=== PATIENT | female | born 1955 | race Caucasian/White ===

== ENCOUNTER 2016-10-09 17:43 | Emergency (ER) | payer OTHER ==
--- NOTE | ~2016-10-09 | CR172 ---
[facility] A Service of [facility] & [facility] RADIOLOGY TEXT RESULTS PATIENT: CHIP GOLDEN LOCATION: [facility] : 59 UNIT #: [id number] AGE: [address]: Nilson Armendariz MD SEX: F ORDER DR: [id number] [facility] [address] [place], [place] [address] [id number] E MR#: [id number] Acc #: [id number] NAME: CHIP GOLDEN : 1955 SEX: F STUDY DATE/TIME: 10/09/2016 17:36 UNIT: [facility] ROOM: STUDY DESCRIPTION: CR Knee 3 Views Lt Attending Physician: Nilson Armendariz M.D. Referring Physician: Agustin Steiner M.D. Ordering Physician: Ed Yaakov Boyce M.D. Primary Care Physician: No Primary Care Physician MEDICAL IMAGING REPORT This report is preliminary unless electronic signature is present EXAM Left knee. 3 views. DATE OF EXAM 10/09/2016 INDICATIONS 61-year-old female with left knee pain since last night. COMPARISON No comparisons. FINDINGS There is a small knee joint effusion. Osteopenia. No dislocation. No evidence for acute fracture. IMPRESSION Osteopenia with small knee joint effusion. Otherwise, unremarkable. Dictated by... Albert Montgomery M.D. THIS IS AN ELECTRONICALLY VERIFIED REPORT Albert Montgomery M.D. at 10/12/2016 8:01 AM SIM/vanessa TD: 10/09/2016 23:47 JOB #: [id number] MEDICAL IMAGING REPORT Page 1 of 1 COPY
--- NOTE | ~2016-10-09 | CR20 ---
[facility] A Service of [facility] & [facility] RADIOLOGY TEXT RESULTS PATIENT: CHIP GOLDEN LOCATION: [facility] : 59 UNIT #: [id number] AGE: [address]: Nilson Armendariz MD SEX: F ORDER DR: [id number] [facility] [address] [place], [place] [address] [id number] E MR#: [id number] Acc #: [id number] NAME: CHIP GOLDEN : 1955 SEX: F STUDY DATE/TIME: 10/09/2016 17:34 UNIT: [facility] ROOM: STUDY DESCRIPTION: CR Ankle Min 3 Views Lt Attending Physician: Nilson Armendariz M.D. Ordering Physician: Ed Yaakov Boyce M.D. Primary Care Physician: No Primary Care Physician MEDICAL IMAGING REPORT This report is preliminary unless electronic signature is present EXAM Left ankle, 3 views. DATE OF EXAM 10/09/2016 INDICATIONS Left ankle pain and swelling since last night. COMPARISON No comparisons. FINDINGS Osteopenia. Ankle mortise intact. No evidence of fracture. IMPRESSION Osteopenia. Otherwise, unremarkable. Dictated by... Albert Montgomery M.D. THIS IS AN ELECTRONICALLY VERIFIED REPORT Albert Montgomery M.D. at 10/12/2016 8:01 AM SIM/vanessa TD: 10/09/2016 23:58 JOB #: [id number] MEDICAL IMAGING REPORT Page 1 of 1 COPY
[~2016-10-09 17:43] MED LIST: BACITRACIN15 GM TP; K-DUR20 ME1 DOB; ULTRAM PO; ZOFRAN ODT4 MG SL
== END 2016-10-09 19:10 | disposition home or self-care (01) ==
LOC: CED 17:43
DX: M25.562 Pain in left knee (principal); I10 Essential (primary) hypertension; M81.0 Age-related osteoporosis without current pathological fracture; F17.210 Nicotine dependence, cigarettes, uncomplicated
CPT/HCPCS: 29505; 73562; 73610; 99284